=== PATIENT | male | born 1995 | race Two or more races ===

== ENCOUNTER 2019-02-08 14:43 | Emergency (ER) | payer MEDICAID, OTHER ==
[~2019-02-08] VITALS: Ht 170.2 cm; Wt 68.0 kg
[2019-02-08 15:02] VITALS: BP 115/73
== END 2019-02-08 16:57 | disposition home or self-care (01) ==
LOC: ER 14:46
DX: H61.23 Impacted cerumen, bilateral (principal)
CPT/HCPCS: 69209